=== PATIENT | female | born 2000 | race Caucasian/White ===

== ENCOUNTER 2022-07-24 20:31 | Emergency (ER) | payer SELFPAY ==
[~2022-07-24] VITALS: Ht 160 cm; Wt 77.3 kg
[2022-07-24 20:32] VITALS: BP 128/73
[2022-07-24 21:44] LABS: APPEARANCE, URINE MANUAL CLEAR (CLEAR); COLOR, URINE MANUAL YELLOW (YELLOW)
[2022-07-24 21:45] LABS: PROTEIN, URINE MANUAL TRACE mg/dL (NEGATIVE)
[2022-07-24 21:46] LABS: BILIRUBIN, URINE MANUAL NEGATIVE (NEGATIVE); BLOOD URINE MANUAL POSITIVE (NEGATIVE); GLUCOSE, URINE (UA) MANUAL NEGATIVE (NEGATIVE); KETONE, URINE MANUAL NEGATIVE (NEGATIVE); LEUKOCYTE ESTERASE, URINE MAN TRACE (NEGATIVE); NITRITE, URINE MANUAL NEGATIVE (NEGATIVE); UROBILINOGEN, URINE MANUAL NORMAL (NORMAL)
[2022-07-24 21:52] LABS: BACTERIA, URINE SMALL AMOUNT; HYALINE CAST, URINE NONE SEEN /lpf (0-1); MUCUS, URINE SMALL AMOUNT (NEGATIVE); SQUAMOUS EPITHELIAL CELL URINE SMALL AMOUNT /hpf (SMALL AMT)
[2022-07-24 22:20] LABS: RSV AMPLIFICATION NEGATIVE (NEGATIVE)
[2022-07-24 23:02] LABS: BASO # 0.1 10^3/uL (0.0-0.2); BASO % 0.8 % (0.0-1.0); EOS # 0.1 10^3/uL (0.0-0.5); EOS % 1.4 % (0.0-3.0); HEMATOCRIT 39.4 % (36.0-47.0); HEMOGLOBIN 12.8 g/dl (12.0-15.5); LYMPH % 29.3 % (24.0-44.0); MEAN CORPUSCULAR HEMOGLOBIN 28.8 pg (27.0-33.0); MEAN CORPUSCULAR HGB CONC 32.5 g/dl (32.0-36.5); MEAN CORPUSCULAR VOLUME 88.5 fl (80.0-96.0); MONO # 0.5 10^3/uL (0.0-0.8); MONO % 4.8 % (2.0-8.0); NEUTROPHILS # 6.4 10^3/uL (1.5-8.5); NEUTROPHILS % 63.3 % (36.0-66.0); PLATELET COUNT, AUTOMATED 382 10^3/uL (150-450); RED BLOOD COUNT 4.45 10^6/uL (4.00-5.40); WHITE BLOOD COUNT 10.2 10^3/uL (4.0-10.0)
[2022-07-24 23:40] LABS: HCG, SERUM QUALITATIVE NEGATIVE (NEGATIVE)
[2022-07-24 23:46] LABS: ALBUMIN 4.7 GM/DL (3.2-5.2); ALT/SGPT 20 U/L (12-78); BILIRUBIN,DIRECT 0.3 MG/DL (0.0-0.2); BILIRUBIN,TOTAL 0.2 MG/DL (0.2-1.0); BLOOD UREA NITROGEN 13 MG/DL (7-18); CALCIUM LEVEL 9.7 MG/DL (8.5-10.1); CARBON DIOXIDE LEVEL 25 MEQ/L (21-32); CHLORIDE LEVEL 108 MEQ/L (98-107); CREATININE FOR GFR 0.74 MG/DL (0.55-1.30); GLOMERULAR FILTRATION RATE > 60.0 (>60); GLUCOSE, FASTING 84 MG/DL (70-100); LIPASE 278 U/L (73-393); SODIUM LEVEL 139 MEQ/L (136-145); TOTAL PROTEIN 7.2 GM/DL (6.4-8.2)
[2022-07-25] MEDS ORDERED: diphenhydrAMINE 50MG/ML VIAL (J1200) IV STA (01:04)
[2022-07-25] MEDS ORDERED: KETOROLAC 30 MG/ML 1ML VIAL IV ONE (01:05)
[2022-07-25] MEDS ORDERED: METOCLOPRAMIDE INJ 10MG/2ML VIAL (J2765 PER 1) IV ONE (01:05)
[2022-07-25] MEDS ORDERED: NS 1,000 ML IV ONE (01:05)
[2022-07-25] MEDS ORDERED: NAPROXEN 250 MG TAB PO ONE (01:55)
[2022-07-25] MEDS ORDERED: diphenhydrAMINE 25MG CAP PO ONE (01:55)
[2022-07-25] MEDS ORDERED: METOCLOPRAMIDE 10MG TAB PO ONE (01:55)
== END 2022-07-25 02:14 | disposition home or self-care (01) ==
LOC: M ED 20:31
DX: R51.9 Headache, unspecified (principal); Z20.822 Contact with and (suspected) exposure to COVID-19

== ENCOUNTER 2022-08-14 17:55 | Emergency (ER) | payer MEDICAID, OTHER, SELFPAY ==
[~2022-08-14] VITALS: Ht 157.5 cm; Wt 87.9 kg
[2022-08-14 19:26] LABS: BASO # 0.1 10^3/uL (0.0-0.2); BASO % 0.7 % (0.0-1.0); EOS # 0.1 10^3/uL (0.0-0.5); HEMOGLOBIN 12.3 g/dl (12.0-15.5); LYMPH # 2.9 10^3/uL (1.5-5.0); LYMPH % 25.5 % (24.0-44.0); MEAN CORPUSCULAR HGB CONC 32.4 g/dl (32.0-36.5); MEAN CORPUSCULAR VOLUME 89.6 fl (80.0-96.0); MONO # 0.6 10^3/uL (0.0-0.8); MONO % 4.8 % (2.0-8.0); NEUTROPHILS # 7.8 10^3/uL (1.5-8.5); NEUTROPHILS % 67.7 % (36.0-66.0); PLATELET COUNT, AUTOMATED 357 10^3/uL (150-450); RED BLOOD COUNT 4.24 10^6/uL (4.00-5.40); WHITE BLOOD COUNT 11.5 10^3/uL (4.0-10.0)
[2022-08-14 19:59] LABS: HCG, SERUM QUALITATIVE NEGATIVE (NEGATIVE)
[2022-08-14 20:04] LABS: BLOOD UREA NITROGEN 10 MG/DL (7-18); CALCIUM LEVEL 9.2 MG/DL (8.5-10.1); CARBON DIOXIDE LEVEL 26 MEQ/L (21-32); CHLORIDE LEVEL 108 MEQ/L (98-107); CREATININE FOR GFR 0.68 MG/DL (0.55-1.30); GLOMERULAR FILTRATION RATE > 60.0 (>60); GLUCOSE, FASTING 100 MG/DL (70-100); POTASSIUM SERUM 4.1 MEQ/L (3.5-5.1); SODIUM LEVEL 139 MEQ/L (136-145)
[2022-08-14 23:51] VITALS: BP 136/88
[2022-08-15] MEDS ORDERED: ISOVUE-370 76% 100ML VIAL As Ordered ONE (00:26)
[2022-08-15] MEDS ORDERED: NS 1,000 ML IV ONE (00:50)
== END 2022-08-15 01:52 | disposition home or self-care (01) ==
LOC: M ED 17:55
DX: R10.9 Unspecified abdominal pain (principal); Z87.59 Personal history of other complications of pregnancy, childbirth and the puerperium; J45.909 Unspecified asthma, uncomplicated; F17.200 Nicotine dependence, unspecified, uncomplicated
CPT/HCPCS: 74177; 76830; 76856; 80048; 84703; 85025; 93976; 96360; 99283; Q9967

== ENCOUNTER 2022-10-16 18:56 | Emergency (ER) | payer OTHER, SELFPAY ==
[~2022-10-16] VITALS: Ht 157.5 cm; Wt 88.3 kg
[2022-10-16 22:25] VITALS: BP 132/79
== END 2022-10-16 22:28 | disposition home or self-care (01) ==
LOC: M ED 18:56
DX: S00.83XA Contusion of other part of head, initial encounter (principal); S00.03XA Contusion of scalp, initial encounter; S09.90XA Unspecified injury of head, initial encounter; Y00.XXXA Assault by blunt object, initial encounter; Y92.410 Unspecified street and highway as the place of occurrence of the external cause

== ENCOUNTER 2022-10-26 17:40 | Emergency (ER) | payer OTHER ==
[~2022-10-26] VITALS: Ht 157.5 cm; Wt 90.2 kg
[2022-10-26 18:51] LABS: BASO # 0.1 10^3/uL (0.0-0.2); BASO % 0.5 % (0.0-1.0); EOS # 0.1 10^3/uL (0.0-0.5); EOS % 0.7 % (0.0-3.0); HEMOGLOBIN 12.1 g/dl (12.0-15.5); LYMPH # 2.9 10^3/uL (1.5-5.0); LYMPH % 30.3 % (24.0-44.0); MEAN CORPUSCULAR HEMOGLOBIN 28.5 pg (27.0-33.0); MEAN CORPUSCULAR HGB CONC 31.8 g/dl (32.0-36.5); MEAN CORPUSCULAR VOLUME 89.6 fl (80.0-96.0); MONO # 0.7 10^3/uL (0.0-0.8); MONO % 6.9 % (2.0-8.0); NEUTROPHILS # 5.9 10^3/uL (1.5-8.5); NEUTROPHILS % 61.3 % (36.0-66.0); PLATELET COUNT, AUTOMATED 363 10^3/uL (150-450); RED BLOOD COUNT 4.24 10^6/uL (4.00-5.40); WHITE BLOOD COUNT 9.6 10^3/uL (4.0-10.0)
[2022-10-26 19:29] LABS: LIPASE 57 U/L (12-53)
[2022-10-26 19:31] LABS: BILIRUBIN,DIRECT < 0.1 MG/DL (<0.4)
[2022-10-26 19:59] LABS: ALBUMIN 4.5 G/DL (3.2-5.2); ALKALINE PHOSPHATASE 88 U/L (46-116); ALT/SGPT 22 U/L (7.0-40); AST/SGOT 20 U/L (<34); BILIRUBIN,TOTAL 0.2 MG/DL (0.3-1.2); BLOOD UREA NITROGEN 13 MG/DL (9-23); CALCIUM LEVEL 9.9 MG/DL (8.5-10.1); CARBON DIOXIDE LEVEL 26 MMOL/L (20-31); CHLORIDE LEVEL 102 MMOL/L (98-107); GLUCOSE, FASTING 84 MG/DL (60-100); POTASSIUM SERUM 4.1 MMOL/L (3.5-5.1); SODIUM LEVEL 137 MMOL/L (136-145); TOTAL PROTEIN 7.3 G/DL (5.7-8.2)
[2022-10-26 20:15] LABS: CREATININE FOR GFR 0.58 MG/DL (0.55-1.30); GLOMERULAR FILTRATION RATE > 60.0 (>60)
[2022-10-26 20:32] LABS: HCG, SERUM QUALITATIVE NEGATIVE (NEGATIVE)
[2022-10-26] MEDS ORDERED: KETOROLAC 30 MG/ML 1ML VIAL IM ONE (23:35)
[2022-10-26 23:46] VITALS: BP 132/81
[2022-10-28] MEDS ORDERED: MACR100C43 PO (16:31)
[2022-10-28] MEDS ORDERED: PYRI1TAB5 PO (16:31)
== END 2022-10-26 23:49 | disposition home or self-care (01) ==
LOC: M ED 17:40
DX: N83.01 Follicular cyst of right ovary (principal); R10.31 Right lower quadrant pain; Z87.59 Personal history of other complications of pregnancy, childbirth and the puerperium
CPT/HCPCS: 36415; 76856; 80048; 80076; 81000; 81002; 83690; 84703; 85025; 96372; 99283; J1885

== ENCOUNTER 2022-11-10 18:11 | Emergency (ER) | payer OTHER ==
[~2022-11-10] VITALS: Ht 157.5 cm; Wt 87.7 kg
[~2022-11-10 18:11] MED LIST: MACR100C43 PO; PYRI1TAB5 PO
[2022-11-10 18:16] VITALS: BP 130/73
== END 2022-11-11 04:05 | disposition left against medical advice (07) ==
LOC: M ED 18:11
DX: Z53.21 Procedure and treatment not carried out due to patient leaving prior to being seen by health care provider (principal)

== ENCOUNTER 2023-03-11 17:40 | Emergency (ER) | payer OTHER ==
[~2023-03-11] VITALS: Ht 157.5 cm; Wt 90.7 kg
[2023-03-11 17:41] VITALS: BP 142/83
[2023-03-11] MEDS ORDERED: KETOROLAC 60MG 2ML VIAL IM ONE (19:15)
[2023-03-11] MEDS ORDERED: LIDOCAINE 4% CREAM 5GM (LMX4) TOP ONE (19:15)
[2023-03-11 19:36] LABS: BASO % 0.6 % (0.0-1.0); EOS % 0.3 % (0.0-3.0); HEMATOCRIT 37.9 % (36.0-47.0); HEMOGLOBIN 12.6 g/dl (12.0-15.5); LYMPH # 1.8 10^3/uL (1.5-5.0); LYMPH % 26.8 % (24.0-44.0); MEAN CORPUSCULAR HGB CONC 33.2 g/dl (32.0-36.5); MEAN CORPUSCULAR VOLUME 87.1 fl (80.0-96.0); MONO # 0.7 10^3/uL (0.0-0.8); MONO % 10.9 % (2.0-8.0); NEUTROPHILS % 61.2 % (36.0-66.0); PLATELET COUNT, AUTOMATED 351 10^3/uL (150-450); RED BLOOD COUNT 4.35 10^6/uL (4.00-5.40); WHITE BLOOD COUNT 6.6 10^3/uL (4.0-10.0)
[2023-03-11 20:00] LABS: URIC ACID 3.9 MG/DL (3.1-7.8)
[2023-03-11 20:07] LABS: ERYTHROCYTE SEDIMENTATION RATE 30 mm/hr (0-20)
[2023-03-11 20:08] LABS: HCG, SERUM QUANTITATIVE 10.5 MIU/ML (<4.2)
[2023-03-11 22:06] LABS: C REACTIVE PROTEIN QUANTITATIV 2.3 MG/DL (<1.0)
[2023-03-11] MEDS ORDERED: ANEC4CRE3 TOP (22:26)
== END 2023-03-11 22:34 | disposition home or self-care (01) ==
LOC: M ED 17:40
DX: M25.561 Pain in right knee (principal); R89.1 Abnormal level of hormones in specimens from other organs, systems and tissues; Z86.19 Personal history of other infectious and parasitic diseases
CPT/HCPCS: 73564; 80047; 84550; 84702; 85025; 85652; 86140; 96372; 99282; J1885

== ENCOUNTER 2023-03-12 21:54 | Emergency (ER) | payer OTHER ==
[~2023-03-12] VITALS: Ht 157.5 cm; Wt 90.2 kg
[~2023-03-12 21:54] MED LIST changes: +ANEC4CRE3 TOP
[2023-03-12 23:15] LABS: BASO # 0.1 10^3/uL (0.0-0.2); BASO % 0.8 % (0.0-1.0); EOS # 0.1 10^3/uL (0.0-0.5); EOS % 1.1 % (0.0-3.0); HEMATOCRIT 37.9 % (36.0-47.0); HEMOGLOBIN 12.6 g/dl (12.0-15.5); LYMPH # 2.5 10^3/uL (1.5-5.0); LYMPH % 39.5 % (24.0-44.0); MEAN CORPUSCULAR HEMOGLOBIN 29.1 pg (27.0-33.0); MEAN CORPUSCULAR HGB CONC 33.2 g/dl (32.0-36.5); MEAN CORPUSCULAR VOLUME 87.5 fl (80.0-96.0); MONO # 0.8 10^3/uL (0.0-0.8); MONO % 12.4 % (2.0-8.0); NEUTROPHILS # 2.9 10^3/uL (1.5-8.5); PLATELET COUNT, AUTOMATED 355 10^3/uL (150-450); RED BLOOD COUNT 4.33 10^6/uL (4.00-5.40); WHITE BLOOD COUNT 6.4 10^3/uL (4.0-10.0)
[2023-03-12 23:36] LABS: BLOOD UREA NITROGEN 12 MG/DL (9-23); CALCIUM LEVEL 8.7 MG/DL (8.5-10.1); CARBON DIOXIDE LEVEL 26 MMOL/L (20-31); CHLORIDE LEVEL 108 MMOL/L (98-107); CREATININE FOR GFR 0.67 MG/DL (0.55-1.30); GLOMERULAR FILTRATION RATE > 60.0 (>60); GLUCOSE, FASTING 85 MG/DL (60-100); POTASSIUM SERUM 3.5 MMOL/L (3.5-5.1); SODIUM LEVEL 141 MMOL/L (136-145)
[2023-03-13 02:47] LABS: HCG, SERUM QUANTITATIVE 6.8 MIU/ML (<4.2)
[2023-03-13 04:11] VITALS: BP 139/96
== END 2023-03-13 04:13 | disposition home or self-care (01) ==
LOC: M ED 21:54
DX: R89.1 Abnormal level of hormones in specimens from other organs, systems and tissues (principal); Z87.59 Personal history of other complications of pregnancy, childbirth and the puerperium; J45.909 Unspecified asthma, uncomplicated

== ENCOUNTER → 2023-03-14 | Outpatient (CLI) | payer OTHER | LOC: M PLALAB 15:53 | PROVIDERS: ATTEND Specialist | DX: E34.9 Endocrine disorder, unspecified (principal) ==

== ENCOUNTER 2023-06-03 19:17 | Emergency (ER) | payer OTHER ==
[~2023-06-03] VITALS: Ht 157.5 cm; Wt 92.0 kg
[2023-06-03 20:14] LABS: URINE PREG TEST POSITIVE (NEGATIVE)
[2023-06-03 21:29] VITALS: BP 141/76; TEMP 97; O2SAT 99
== END 2023-06-03 21:32 | disposition home or self-care (01) ==
LOC: M ED 19:17
DX: Z04.71 Encounter for examination and observation following alleged adult physical abuse (principal); S09.90XA Unspecified injury of head, initial encounter; Z3A.00 Weeks of gestation of pregnancy not specified

== ENCOUNTER → 2023-07-10 | Outpatient (CLI) | payer MEDICAID, OTHER ==
[2023-07-10 16:00] LABS: HEMATOCRIT 35.4 % (36.0-47.0); HEMOGLOBIN 11.6 g/dl (12.0-15.5); MEAN CORPUSCULAR HEMOGLOBIN 29.4 pg (27.0-33.0); MEAN CORPUSCULAR HGB CONC 32.8 g/dl (32.0-36.5); MEAN CORPUSCULAR VOLUME 89.8 fl (80.0-96.0); PLATELET COUNT, AUTOMATED 305 10^3/uL (150-450); RED BLOOD COUNT 3.94 10^6/uL (4.00-5.40); WHITE BLOOD COUNT 7.7 10^3/uL (4.0-10.0)
[2023-07-10 17:04] LABS: HIV 1&2 SCREEN NEGATIVE (NEGATIVE)
[2023-07-10 17:12] LABS: HEPATITIS C VIRUS ABY INDEX 0.14 INDEX (<0.8)
[2023-07-10 17:23] LABS: GC DNA AMPLIFICATION NEGATIVE (NEGATIVE)
== END ==
LOC: M PLALAB 14:36
PROVIDERS: ATTEND Advanced Practice Midwife
DX: Z34.81 Encounter for supervision of other normal pregnancy, first trimester (principal)

== ENCOUNTER 2023-07-31 21:39 | Emergency (ER) | payer OTHER ==
[~2023-07-31] VITALS: Ht 157.5 cm; Wt 99.3 kg
[2023-07-31 21:42] VITALS: TEMP 97.5
[2023-08-01] MEDS ORDERED: CEPHALEXIN SUSP POWDER 250MG/5ML BTL 100ML PO ONE (00:25)
[2023-08-01] MEDS ORDERED: CEPHALEXIN 500 MG CAP PO ONE (00:35)
[2023-08-01] MEDS ORDERED: CEPH500C PO (00:45)
[2023-08-01] MEDS ORDERED: NEOSPORIN OINT 0.9 GM PKT TOP ONE (00:50)
[2023-08-01 01:30] VITALS: BP 122/71; O2SAT 98
== END 2023-08-01 01:32 | disposition home or self-care (01) ==
LOC: M ED 21:39
DX: O26.891 Other specified pregnancy related conditions, first trimester (principal); S91.205A Unspecified open wound of left lesser toe(s) with damage to nail, initial encounter; S92.912A Unspecified fracture of left toe(s), initial encounter for closed fracture; R07.0 Pain in throat; Y92.009 Unspecified place in unspecified non-institutional (private) residence as the place of occurrence of the external cause; Z79.899 Other long term (current) drug therapy; Z3A.12 12 weeks gestation of pregnancy

== ENCOUNTER → 2023-08-08 | Outpatient (CLI) | payer MEDICAID ==
[~2023-08-08] MED LIST changes: +CEPH500C PO
== END ==
LOC: M WHC 08:25
PROVIDERS: ATTEND Obstetrics & Gynecology
DX: Z34.81 Encounter for supervision of other normal pregnancy, first trimester (principal); Z53.9 Procedure and treatment not carried out, unspecified reason

== ENCOUNTER → 2023-08-08 | Outpatient (CLI) | payer MEDICAID | LOC: M PLALAB 08:57 | PROVIDERS: ATTEND Obstetrics & Gynecology | DX: Z34.81 Encounter for supervision of other normal pregnancy, first trimester (principal) ==

== ENCOUNTER → 2023-09-25 | Outpatient (CLI) | payer OTHER | LOC: M WHC 11:10 | PROVIDERS: ATTEND Obstetrics & Gynecology | DX: Z34.82 Encounter for supervision of other normal pregnancy, second trimester (principal); Z3A.20 20 weeks gestation of pregnancy ==

== ENCOUNTER → 2023-12-19 | Outpatient (CLI) | payer OTHER ==
[~2023-12-19] MED LIST changes: +PRENTAB9 PO
[2023-12-19 14:00] LABS: HEMOGLOBIN 10.1 g/dl (12.0-15.5); MEAN CORPUSCULAR HEMOGLOBIN 29.3 pg (27.0-33.0); MEAN CORPUSCULAR HGB CONC 33.7 g/dl (32.0-36.5); PLATELET COUNT, AUTOMATED 334 10^3/uL (150-450); RED BLOOD COUNT 3.45 10^6/uL (4.00-5.40); WHITE BLOOD COUNT 12.2 10^3/uL (4.0-10.0)
== END ==
LOC: M PLALAB 09:00
PROVIDERS: ATTEND Advanced Practice Midwife
DX: Z34.82 Encounter for supervision of other normal pregnancy, second trimester (principal)

== ENCOUNTER 2023-12-20 19:21 | Outpatient (CLI) | payer OTHER ==
[~2023-12-20] VITALS: Ht 157.5 cm; Wt 96.3 kg
[2023-12-20 19:53] VITALS: BP 95/54; O2SAT 99
[2023-12-20 20:25] LABS: BILIRUBIN, URINE MANUAL NEGATIVE (NEGATIVE); KETONE, URINE MANUAL 1+ mg/dL (NEGATIVE); NITRITE, URINE MANUAL NEGATIVE (NEGATIVE); SPECIFIC GRAVITY,URINE MANUAL 1.025 (1.002-1.035); UROBILINOGEN, URINE MANUAL NORMAL (NORMAL)
[2023-12-20 20:26] LABS: APPEARANCE, URINE MANUAL CLEAR (CLEAR); BLOOD URINE MANUAL NEGATIVE (NEGATIVE); COLOR, URINE MANUAL YELLOW (YELLOW); GLUCOSE, URINE (UA) MANUAL TRACE(50 MG/DL) mg/dL (NEGATIVE); LEUKOCYTE ESTERASE, URINE MAN NEGATIVE (NEGATIVE); PROTEIN, URINE MANUAL NEGATIVE (NEGATIVE)
[2023-12-20 20:37] LABS: BACTERIA, URINE SMALL AMOUNT; HYALINE CAST, URINE NONE SEEN /lpf (0-1); SQUAMOUS EPITHELIAL CELL URINE MOD AMOUNT /hpf (SMALL AMT)
[2023-12-20 20:38] LABS: MUCUS, URINE SMALL AMOUNT (NEGATIVE); RBC, URINE 0-1 /hpf (0-3); WBC, URINE NONE SEEN /hpf (0-3)
[2023-12-20 20:53] VITALS: BP 101/63
== END 2023-12-20 21:00 | disposition home or self-care (01) ==
LOC: M LDO 19:21
PROVIDERS: ATTEND Obstetrics & Gynecology
DX: O26.893 Other specified pregnancy related conditions, third trimester (principal); R10.2 Pelvic and perineal pain; M54.50 Low back pain, unspecified; O09.293 Supervision of pregnancy with other poor reproductive or obstetric history, third trimester; O09.33 Supervision of pregnancy with insufficient antenatal care, third trimester; Z3A.32 32 weeks gestation of pregnancy
CPT/HCPCS: 59025; 81000; 87086; G0463

== ENCOUNTER → 2023-12-26 | Outpatient (CLI) | payer OTHER | LOC: M WHC 10:19 | PROVIDERS: ATTEND Obstetrics & Gynecology | DX: Z36.2 Encounter for other antenatal screening follow-up (principal); Z3A.33 33 weeks gestation of pregnancy ==

== ENCOUNTER 2024-01-27 13:56 | Outpatient (CLI) | payer OTHER ==
[~2024-01-27] VITALS: Ht 157.5 cm; Wt 98.6 kg
[2024-01-27 14:14] VITALS: BP 119/62
[2024-01-27] MEDS: diphenhydrAMINE 25MG CAP PO ONE (14:56)
[2024-01-27] MEDS: METOCLOPRAMIDE 10MG TAB PO ONE (14:57)
[2024-01-27] MEDS: LR 1,000 ML IV ONE (16:35)
[2024-01-27] MEDS: ACETAMINOPHEN 500 MG TAB PO ONE (16:38)
== END 2024-01-27 17:39 | disposition home or self-care (01) ==
LOC: M LDO 13:56
PROVIDERS: ATTEND Obstetrics & Gynecology
DX: O26.893 Other specified pregnancy related conditions, third trimester (principal); O09.293 Supervision of pregnancy with other poor reproductive or obstetric history, third trimester; O09.33 Supervision of pregnancy with insufficient antenatal care, third trimester; O98.53 Other viral diseases complicating the puerperium; R51.9 Headache, unspecified; R87.810 Cervical high risk human papillomavirus (HPV) DNA test positive; Z3A.37 37 weeks gestation of pregnancy
CPT/HCPCS: 59025; 76815; 81001; 87081; 87086; 87635; G0463

== ENCOUNTER 2024-02-04 13:10 | Inpatient (IN) | payer OTHER, MEDICAID ==
[2024-02-04] VITALS (51 sets, daily range): BP systolic 81–138; BP diastolic 46–98
[~2024-02-04] VITALS: Ht 157.5 cm; Wt 98.8 kg
[2024-02-04] MEDS ORDERED: CARBOPROST TROMETHAMINE 250 MCG/ML AMP IM PRN (14:40)
[2024-02-04] MEDS ORDERED: OXYTOCIN DRIP 30 UNITS in IV 1 EA IV PRN (14:40)
[2024-02-04] MEDS ORDERED: TRANEXAMIC ACID INJection 1,000 MG in NS 100 ML IV PRN (14:40)
[2024-02-04] MEDS ORDERED: LIDOCAINE 1% MDV 20ML VIAL INFIL PRN (14:40)
[2024-02-04] MEDS ORDERED: OXYTOCIN INJ 10UNITS/ML 1ML VIAL IM PRN (14:40)
[2024-02-04] MEDS ORDERED: HOME MED LIST COMPLETE! XX SCH (14:55)
[2024-02-04 15:14] LABS: HEMATOCRIT 29.8 % (36.0-47.0); HEMOGLOBIN 9.5 g/dl (12.0-15.5); MEAN CORPUSCULAR HEMOGLOBIN 26.9 pg (27.0-33.0); MEAN CORPUSCULAR HGB CONC 31.9 g/dl (32.0-36.5); MEAN CORPUSCULAR VOLUME 84.4 fl (80.0-96.0); PLATELET COUNT, AUTOMATED 298 10^3/uL (150-450); RED BLOOD COUNT 3.53 10^6/uL (4.00-5.40); WHITE BLOOD COUNT 11.1 10^3/uL (4.0-10.0)
[2024-02-04] MEDS: LR 1,000 ML IV SCH (15:46)
[2024-02-04] MEDS: OXYTOCIN DRIP 30 UNITS in IV 1 EA IV SCH (15:46)
[2024-02-04] MEDS ORDERED: ONDANSETRON 4MG 2ML VIAL IV PRN ×2 (16:15)
[2024-02-04] MEDS ORDERED: diphenhydrAMINE 50MG/ML VIAL IV PRN ×2 (16:15)
[2024-02-04] MEDS ORDERED: EPIDURAL/PCA KEYS XX PRN ×2 (16:15)
[2024-02-04] MEDS ORDERED: NALOXONE INJ 0.4MG/1ML VIAL IV PRN ×2 (16:15)
[2024-02-04] MEDS ORDERED: LR 500 ML IV PRN ×2 (16:15)
[2024-02-04] MEDS ORDERED: ePHEDrine SULFATE 25 MG/5 ML(5MG/ML) SYRINGE IVP PRN (16:15)
[2024-02-04] MEDS: LACTATED RINGER'S 1000 ML IV STA (16:25)
[2024-02-04] MEDS: FENTANYL/ROPIVACAINE/NACL BAG 100 ML EPIDURAL SCH (17:00)
[2024-02-04] MEDS: ePHEDrine SULFATE 25 MG/5 ML(5MG/ML) SYRINGE IVP PRN (17:18)
[2024-02-05] VITALS (14 sets, daily range): BP systolic 92–139; BP diastolic 50–82; O2SAT 98–100
[2024-02-05] MEDS: METHYLERGONOVINE MALEATE 0.2MG/ML 1ML VIAL IM PRN (04:25)
[2024-02-05 04:31] LABS: CORD GAS ABE A -8.8; CORD GAS ABE V -6.2; CORD GAS HCO3 A 19.5 MMOL/L; CORD GAS HCO3 V 20.4 MMOL/L; CORD GAS O2 SAT A 36.1 %; CORD GAS O2 SAT V 61.3 %; CORD GAS PCO2 A 51.6 mmHg; CORD GAS PCO2 V 43.9 mmHg; CORD GAS PH A 7.196 UNITS; CORD GAS PH V 7.284 UNITS; CORD GAS PO2 A 18.7 mmHg; CORD GAS PO2 V 25.7 mmHg; CORD GAS SBC A 16.2 MMOL/L; CORD GAS SBC V 18.7 MMOL/L; CORD GAS TCO2 A 21.1 MMOL/L; CORD GAS TCO2 V 21.7 MMOL/L
[2024-02-05] MEDS ORDERED: IBUPROFEN 600MG TAB PO PRN (04:45)
[2024-02-05] MEDS ORDERED: METHYLERGONOVINE MALEATE 0.2MG/ML 1ML VIAL IM PRN (04:45)
[2024-02-05] MEDS ORDERED: ANUSOL HC CREAM 30GM TOP PRN (04:45)
[2024-02-05] MEDS ORDERED: ACETAMINOPHEN TAB 650MG DOSE (2X325MG) PO PRN (04:45)
[2024-02-05] MEDS ORDERED: RHOGAM 300MCG (1500IU) INJ IM SCH (04:45)
[2024-02-05] MEDS: ACETAMINOPHEN 500 MG TAB PO PRN (06:00)
[2024-02-05] MEDS: IBUPROFEN 800 MG TAB PO PRN (08:02)
[2024-02-05] MEDS: PRENATAL VITAMINS CHEWABLE TABLET PO SCH (08:02)
[2024-02-05] MEDS: DIBUCAINE 1% OINTMENT 30GM TOP PRN (14:07)
[2024-02-05] MEDS: DOCUSATE SODIUM 100MG CAPSULE PO PRN (14:07)
[2024-02-05] MEDS: MOM 30ML SUSPENSION UDC PO PRN (17:09)
[2024-02-06 06:11] VITALS: BP 120/71; O2SAT 99
[2024-02-07] MEDS ORDERED: MEASLES,MUMPS,RUBELLA VACCINE INJ (MMR-II) SC.IMMUN ONE (09:00)
== END 2024-02-06 13:43 | disposition home or self-care (01) | DRG 560 ==
LOC: M LDO 13:10 → M LDI 14:34 → M OBS 02-05 06:07
PROVIDERS: ADMIT Advanced Practice Midwife; ATTEND Advanced Practice Midwife
PROC: 10E0XZZ Delivery of Products of Conception, External Approach (ICD-10-PCS; principal; 2024-02-04)
PROC: 10907ZC Drainage of Amniotic Fluid, Therapeutic from Products of Conception, Via Natural or Artificial Opening (ICD-10-PCS; 2024-02-04)
DX: O98.52 Other viral diseases complicating childbirth (principal); B00.9 Herpesviral infection, unspecified; Z37.0 Single live birth; Z3A.39 39 weeks gestation of pregnancy; O09.30 Supervision of pregnancy with insufficient antenatal care, unspecified trimester

== ENCOUNTER 2024-03-27 04:52 | Emergency (ER) | payer MEDICAID, OTHER, SELFPAY ==
[~2024-03-27] VITALS: Ht 157.5 cm; Wt 93.3 kg
[2024-03-27 06:52] LABS: BASO % 0.5 % (0.0-1.0); EOS # 0.2 10^3/uL (0.0-0.5); EOS % 2.6 % (0.0-3.0); HEMATOCRIT 34.6 % (36.0-47.0); HEMOGLOBIN 11.1 g/dl (12.0-15.5); LYMPH # 2.6 10^3/uL (1.5-5.0); LYMPH % 35.2 % (24.0-44.0); MEAN CORPUSCULAR HGB CONC 32.1 g/dl (32.0-36.5); MEAN CORPUSCULAR VOLUME 84.2 fl (80.0-96.0); MONO # 0.4 10^3/uL (0.0-0.8); MONO % 5.6 % (2.0-8.0); NEUTROPHILS # 4.1 10^3/uL (1.5-8.5); NEUTROPHILS % 55.8 % (36.0-66.0); PLATELET COUNT, AUTOMATED 376 10^3/uL (150-450); RED BLOOD COUNT 4.11 10^6/uL (4.00-5.40); WHITE BLOOD COUNT 7.3 10^3/uL (4.0-10.0)
[2024-03-27 07:08] LABS: LIPASE 34 U/L (12-53)
[2024-03-27 07:10] LABS: ALKALINE PHOSPHATASE 108 U/L (46-116); ALT/SGPT 21 U/L (7.0-40); AST/SGOT 21 U/L (<34); BILIRUBIN,DIRECT < 0.1 MG/DL (<0.4); BILIRUBIN,TOTAL 0.2 MG/DL (0.3-1.2); TOTAL PROTEIN 6.6 G/DL (5.7-8.2)
[2024-03-27 07:12] LABS: HCG, SERUM QUALITATIVE NEGATIVE (NEGATIVE)
[2024-03-27] MEDS ORDERED: MIRA3350 PO (09:29)
[2024-03-27 09:40] VITALS: BP 130/75; TEMP 97.2; O2SAT 99
== END 2024-03-27 09:52 | disposition home or self-care (01) ==
LOC: M ED 04:52
DX: R10.9 Unspecified abdominal pain (principal); Z91.040 Latex allergy status

== ENCOUNTER 2024-10-05 04:01 | Emergency (ER) | payer MEDICAID, SELFPAY ==
[~2024-10-05] VITALS: Ht 157.5 cm; Wt 100.2 kg
[~2024-10-05 04:01] MED LIST changes: +MIRA3350 PO
[2024-10-05 07:13] LABS: BASO # 0.1 10^3/uL (0.0-0.2); BASO % 0.7 % (0.0-1.0); EOS # 0.1 10^3/uL (0.0-0.5); EOS % 1.2 % (0.0-3.0); HEMOGLOBIN 11.6 g/dl (12.0-15.5); LYMPH # 3.1 10^3/uL (1.5-5.0); LYMPH % 34.6 % (24.0-44.0); MEAN CORPUSCULAR HEMOGLOBIN 28.6 pg (27.0-33.0); MEAN CORPUSCULAR HGB CONC 33.1 g/dl (32.0-36.5); MEAN CORPUSCULAR VOLUME 86.4 fl (80.0-96.0); MONO # 0.6 10^3/uL (0.0-0.8); MONO % 6.2 % (2.0-8.0); NEUTROPHILS # 5.2 10^3/uL (1.5-8.5); NEUTROPHILS % 57.1 % (36.0-66.0); PLATELET COUNT, AUTOMATED 322 10^3/uL (150-450); RED BLOOD COUNT 4.05 10^6/uL (4.00-5.40)
[2024-10-05 07:31] LABS: ERYTHROCYTE SEDIMENTATION RATE 13 mm/hr (0-20)
[2024-10-05 07:36] LABS: C REACTIVE PROTEIN QUANTITATIV < 0.40 MG/DL (<1.0)
[2024-10-05 07:39] LABS: FREE T4 1.13 NG/DL (0.89-1.76); THYROID STIMULATING HORMONE 3.296 uIU/ML (0.55-4.78)
[2024-10-05 07:40] LABS: VITAMIN B12 LEVEL 340 PG/ML (211-911)
[2024-10-05 07:43] LABS: BLOOD UREA NITROGEN 7 MG/DL (9-23); CARBON DIOXIDE LEVEL 24 MMOL/L (20-31); CHLORIDE LEVEL 109 MMOL/L (98-107); CREATININE FOR GFR 0.59 MG/DL (0.55-1.30); GLOMERULAR FILTRATION RATE > 60.0 (>60); GLUCOSE, FASTING 96 MG/DL (60-100); MAGNESIUM LEVEL 1.9 MG/DL (1.8-2.4); POTASSIUM SERUM 4.1 MMOL/L (3.5-5.1); SODIUM LEVEL 140 MMOL/L (136-145)
[2024-10-05 08:13] LABS: HCG, SERUM QUALITATIVE POSITIVE (NEGATIVE)
[2024-10-05 13:43] VITALS: BP 104/72; TEMP 97.8; O2SAT 100
[2024-10-05] MEDS ORDERED: FIOR1CAP PO (14:05)
[2024-10-05] MEDS ORDERED: RIBO400T PO (14:05)
[2024-10-05] MEDS ORDERED: MAGN400C2 PO (14:05)
[2024-10-05] MEDS ORDERED: CO Q200C10 PO (14:05)
== END 2024-10-05 14:14 | disposition home or self-care (01) ==
LOC: M ED 04:01
DX: O99.351 Diseases of the nervous system complicating pregnancy, first trimester (principal); G43.909 Migraine, unspecified, not intractable, without status migrainosus; Z32.01 Encounter for pregnancy test, result positive; Z79.899 Other long term (current) drug therapy; Z79.1 Long term (current) use of non-steroidal anti-inflammatories (NSAID); Z3A.01 Less than 8 weeks gestation of pregnancy

== ENCOUNTER 2024-11-09 12:54 | Emergency (ER) | payer MEDICAID, SELFPAY ==
[~2024-11-09] VITALS: Ht 157.5 cm; Wt 94.2 kg
[~2024-11-09 12:54] MED LIST changes: +CO Q200C10 PO; +FIOR1CAP PO; +MAGN400C2 PO; +RIBO400T PO
[2024-11-09] MEDS ORDERED: IBUPROFEN 600MG TAB PO ONE (14:10)
[2024-11-09] MEDS: methocarbamoL 500 MG TAB PO ONE (14:17)
[2024-11-09] MEDS: LIDOCAINE 5% (LIDODERM) PATCH TD ONE (14:17)
[2024-11-09 14:36] VITALS: BP 119/59; TEMP 98.2; O2SAT 100
[2024-11-09] MEDS ORDERED: METH-1164 PO (15:08)
[2024-11-09] MEDS ORDERED: LIDO5DIS41 TD (15:08)
== END 2024-11-09 15:17 | disposition home or self-care (01) ==
LOC: M ED 12:54
DX: M25.511 Pain in right shoulder (principal); J45.909 Unspecified asthma, uncomplicated; Z91.040 Latex allergy status; Z79.899 Other long term (current) drug therapy; Z79.1 Long term (current) use of non-steroidal anti-inflammatories (NSAID)